=== PATIENT | male | born 1970 | race Caucasian/White ===

== ENCOUNTER → 2017-08-17 | Outpatient (CLI) | payer BC ==
[~2017-08-17] MED LIST: EFFEXOR XR 75MG75 MG PO; HYDROCODONE1 TABLET PO; LEXAPRO 20 MG T20 MG PO; METFORMIN1000 MG PO; MIRAPEX 1 MG TAB1 MG PO; MOBIC7.5 MG PO; MOTRIN 600MG.600 MG PO; PENICILLIN V P500 MG PO; PHENERGAN 25MG.25 M1 PO; VICODIN 5/500 T1 TAB PO; VOLTAREN75 MG PO
[2017-08-17 09:51] LABS: HEMOGLOBIN 16.5 g/dL (14.1-18.0); LYMPH # 1.7 K/mm3 (0.7-4.5); LYMPH % 30.2 % (10-50)
[2017-08-17 11:39] LABS: BUN 14 mg/dL (7-18)
[2017-08-17 11:44] LABS: GFR (ESTIMATED) 120 ML/MIN (>60)
== END ==
LOC: LAB 09:28
PROVIDERS: Specialist
DX: R55 Syncope and collapse (principal); R51 Headache

== ENCOUNTER → 2017-08-20 | Outpatient (CLI) | payer BC ==
--- NOTE | 2017-08-22 10:03 | RADIOLOGY REPORT PS360 ---
MRI-BRAIN W/WO HISTORY: The SYNCOPE AND COLLAPSE, NONINTRACTABLE EPISODIC HEADACHE ORDERING PHYSICIAN: HERMINIO MARISCAL PATIENT AGE: 47 years COMPARISON: 07/30/2016 TECHNIQUE: Standard multiplanar multiecho sequences are performed without and with gadolinium enhancement. FINDINGS: No midline shift, mass effect, intracranial hemorrhage, hydrocephalus, or acute cortical infarction. No restricted diffusion. There is some nonspecific increase T2 signal within the sukhi centrally not significantly changed The cerebellopontine angles, cerebellum, and brainstem are unremarkable. Periventricular and subcortical white matter has an unremarkable appearance. No enhancing lesions are evident. No intra or extradural mass or large aneurysm. The pituitary and optic chiasm and corpus callosum are unremarkable. No cerebellar tonsillar ectopia. The hippocampal gyri are unremarkable in the temporal horns are symmetric. No mastoid effusion or sinus air-fluid level. IMPRESSION: 1. No acute intracranial findings with no change from 07/30/2016. 2. Nonspecific slight increased T2 signal within the sukhi not significantly changed which is of questionable clinical significance.
--- NOTE | 2017-08-22 10:06 | RADIOLOGY REPORT PS360 ---
MRA-HEAD W/O CLINICAL INDICATION: SYNCOPE AND COLLAPSE, NONINTRACTABLE EPISODIC HEADACHE ORDERING PHYSICIAN: HERMINIO MARISCAL PATIENT AGE: 47 years COMPARISON: None TECHNIQUE: Axial [id number] images are obtained without contrast with 3-D reformats. FINDINGS: The [place] of [place] has an unremarkable appearance. No aneurysm or arteriovenous malformation evident. No major intracranial occlusive process. A single shot MR venogram shows no obvious sagittal sinus thrombosis. IMPRESSION: Negative MRA of the brain
--- NOTE | 2017-08-22 10:06 | RADIOLOGY REPORT PS360 ---
MRA-HEAD W/O CLINICAL INDICATION: SYNCOPE AND COLLAPSE, NONINTRACTABLE EPISODIC HEADACHE ORDERING PHYSICIAN: HERMINIO MARISCAL PATIENT AGE: 47 years COMPARISON: None TECHNIQUE: Axial [id number] images are obtained without contrast with 3-D reformats. FINDINGS: The [place] has an unremarkable appearance. No aneurysm or arteriovenous malformation evident. No major intracranial occlusive process. A single shot MR venogram shows no obvious sagittal sinus thrombosis. IMPRESSION: Negative MRA of the brain
--- NOTE | 2017-08-22 10:10 | RADIOLOGY REPORT PS360 ---
MRA-NECK W/O CLINICAL INDICATION: SYNCOPE AND COLLAPSE, NONINTRACTABLE EPISODIC HEADACHE ORDERING PHYSICIAN: HERMINIO MARISCAL PATIENT AGE: 47 years TECHNIQUE: Axial [id number] images obtained without contrast with 3-D reformats. FINDINGS: There is mild degree of motion artifact which does somewhat of muscular fine detail. No obvious occlusive process evident of the carotid arteries. Vertebral arteries are patent. There is asymmetry in the vertebrals with the right being more prominent than the left with a small left vertebral artery which could be a normal variant. IMPRESSION: 1. Essentially negative MRA of the neck. No significant stenosis of the carotids apparent. 2. Small left vertebral artery which may be seen as a normal variant.
--- NOTE | 2017-08-22 10:10 | RADIOLOGY REPORT PS360 ---
MRA-NECK W/O CLINICAL INDICATION: SYNCOPE AND COLLAPSE, NONINTRACTABLE EPISODIC HEADACHE ORDERING PHYSICIAN: HERMINIO MARISCAL PATIENT AGE: 47 years TECHNIQUE: Axial [id number]-[id number] images obtained without contrast with 3-D reformats. FINDINGS: There is mild degree of motion artifact which does somewhat of muscular fine detail. No obvious occlusive process evident of the carotid arteries. Vertebral arteries are patent. There is asymmetry in the vertebrals with the right being more prominent than the left with a small left vertebral artery which could be a normal variant. IMPRESSION: 1. Essentially negative MRA of the neck. No significant stenosis of the carotids apparent. 2. Small left vertebral artery which may be seen as a normal variant.
== END ==
LOC: RAD 08:45
DX: R55 Syncope and collapse (principal); R51 Headache
CPT/HCPCS: A9576

== ENCOUNTER 2017-08-30 07:29 | Day surgery (SDC) | payer BC ==
[2017-08-30 08:03] LABS: HEMOGLOBIN 15.8 g/dL (14.1-18.0); LYMPH # 2.1 K/mm3 (0.7-4.5); LYMPH % 27.9 % (10-50)
[2017-08-30 08:13] LABS: BUN 16 mg/dL (7-18)
[2017-08-30 08:14] LABS: GFR (ESTIMATED) 120 ML/MIN (>60)
--- NOTE | 2017-08-30 12:19 | RADIOLOGY REPORT PS360 ---
CARDIAC CATHETERIZATION DATE OF CATHETERIZATION:08/30/2017 9:24 AM PROCEDURES: 1. Left heart catheterization 2. Left ventriculogram 3. Selective coronary angiogram INDICATION FOR TEST: 1. Numerous risk factors for coronary artery disease 2. Cardiac syncope 3. Suspected ischemic heart disease Informed consent was obtained prior to the procedure. COMPLICATIONS: None ESTIMATED BLOOD LOSS: Less than 10 ml. TECHNIQUE: One percent lidocaine used to anesthetize the right anterior aspect of the wrist. The right radial artery was accessed via the Seldinger technique. A 6 [place] sheath was placed in the right radial artery. 2.5 mg of verapamil, 800 mcg of nitroglycerin and 5000 U Heparin were given through the arterial sheath. The Ning catheter was also used to perform left heart catheterization and left ventriculography. At the end of the procedure the patient was transferred to the post-op holding area in stable condition for arterial sheath removal. ANGIOGRAPHIC RESULTS: 1. The left main artery normal 2. The left anterior descending artery is proximally normal and then has a mid vessel 30% stenosis 3. The circumflex artery is large dominant vessel with mild luminal irregularities less than 10% stenosed 4. The right coronary artery small nondominant normal 5. The DELUNA ventriculogram reveals normal 65% 6. The left ventricular end-diastolic pressure 10 mmHg IMPRESSION: 1. Mild nonflow limiting coronary artery disease 2. Normal ejection fraction 3. Normal left ventricular end-diastolic pressure PLAN: 1. Medical management 2. Evaluation of arrhythmogenic syncope, implantable loop recorder recommended 3. Risk factor modification 4. Daily baby aspirin 5. LDL less than 55
[2017-08-30 13:52] VITALS: BP 111/70
== END 2017-08-30 13:51 | disposition home or self-care (01) ==
LOC: CATHLAB 07:29
PROVIDERS: Internal Medicine
PROC: B2111ZZ Fluoroscopy of Multiple Coronary Arteries using Low Osmolar Contrast (ICD-10-PCS; 2017-08-30)
PROC: B2151ZZ Fluoroscopy of Left Heart using Low Osmolar Contrast (ICD-10-PCS; 2017-08-30)
PROC: 4A023N7 Measurement of Cardiac Sampling and Pressure, Left Heart, Percutaneous Approach (ICD-10-PCS; principal; 2017-08-30 09:45)
DX: I25.10 Atherosclerotic heart disease of native coronary artery without angina pectoris (principal); R55 Syncope and collapse; Z72.0 Tobacco use; E11.9 Type 2 diabetes mellitus without complications; R07.89 Other chest pain
CPT/HCPCS: C1725; C1769; J1644; Q9967

== ENCOUNTER → 2017-09-02 | Day surgery (SDC) | payer BC ==
--- NOTE | 2017-09-02 16:15 | Procedure note ---
Tilt table Operative/Procedure Record Procedure: Upright TTT Requesting Physician: Bertha Arteaga MD Indication for procedure: Recurrent syncope of unclear etiology Home medications: Effexor, Ibuprofen, Lexapro, Metformin, Risperidone Pre-test vital signs: BP 115/67, HR 81 and NSR, O2 sats 98% on RA Procedure summary: Patient was tilted into the upright position at 85 degrees for 20 minutes. Test was terminated early at the patient's request because he developed moderate to severe pain in the forehead just above his left eye and lightheadedness/near syncope. He also reported some brief nausea when he was initially put in the upright position but says that this resolved very quickly. His symptoms improved/resolved after being returned to a supine position. His heart rate increased from 81 bpm supine to a maximum of 92 bpm in the upright position. Blood presssure remained stable with very little change while upright: lowest BP 110/74, highest 115/75. He remained in sinus rhythm throughout the test. O2 sats remained in the high 90s. Complications: None Conclusions: Abbreviated upright TTT due to patient's complaints of pain above his left eye and near syncope, both symptoms he's had prior to some of his previous syncopal episodes. No significant change in heart rate or blood pressure. No arrhythmias. at 1615
== END ==
LOC: SDC 09:39
PROC: 4A02XFZ Measurement of Cardiac Rhythm, External Approach (ICD-10-PCS; principal; 2017-09-02)
PROC: 4A03XB1 Measurement of Arterial Pressure, Peripheral, External Approach (ICD-10-PCS; 2017-09-02)
DX: R55 Syncope and collapse (principal)

== ENCOUNTER → 2017-09-19 | Outpatient (CLI) | payer BC ==
--- NOTE | 2017-09-19 17:00 | RADIOLOGY REPORT PS360 ---
PROCEDURE: Limited echo performed with Definity contrast study to evaluate left ventricular systolic function INDICATIONS FOR THE TEST: Chest painX COPD Heart Murmur Tobacco SmokingX Palpitations Fatigue Syncope Edema HypertensionXDiabetes Mellitus Rheumatic Fever SOB DILLON Obesity HyperlipidemiaX Family History HDCAD Additional History REPEAT WITH DIFINITY CONTRAST LIMITED EXAM PATIENT INFORMATION HEIGHT: 64 WEIGHT:180 GENDER: Male B/P:120/80 2D. Definitely contrast was given to opacify the endocardial surfaces, visually estimated ejection fraction of approximately 45-50% with no obvious regional wall motion abnormality. CONCLUSION: Definite contrast was given to opacify endocardial surfaces, visually estimated ejection fraction of 45-50% with no obvious regional wall motion abnormality. No significant pericardial effusion noted.
== END ==
LOC: RT 08:44
DX: R55 Syncope and collapse (principal); R07.9 Chest pain, unspecified; I10 Essential (primary) hypertension